=== PATIENT | male | born 1980 | race Caucasian/White ===

== ENCOUNTER 2021-07-15 17:22 | Inpatient (IN) | payer OTHER ==
[2021-07-15 18:09] VITALS: BMI 33.0
[2021-07-15] MEDS ORDERED: ACETAMINOPHEN 1000 MG/100 ML BAG IVPB ONE (19:19)
[2021-07-15] MEDS ORDERED: LACTATED RINGERS SOLUTION 1000 ML INFUS.BAG IV ONE (19:37)
[2021-07-15] MEDS ORDERED: DEXAMETHASONE SOD PHOSPHATE 10 MG/1 ML VIAL IVPUSH ONE (19:37)
[2021-07-15 20:35] LABS: VENOUS BASE EXCESS 0.4 mmol/L (-2-2); VENOUS O2 SATURATION 77.4 % (70-80); VENOUS PH 7.413 (7.310-7.410)
[2021-07-15 20:40] LABS: BASO % 0.3 % (0-2.0); HEMATOCRIT 40.1 % (35.4-49); HEMOGLOBIN 12.9 GM/dL (11.7-16.9); LYMPH % 7.8 % (8-40); MCH 24.9 pg (25.7-33.7); MCHC 32.1 g/dl (32.0-35.9); MEAN CELL VOLUME 77.6 fl (80-96); MEAN PLT VOLUME 9.6 fl (7.5-11.1); MONO % 3.6 % (3.8-10.2); NEUT % 88.3 % (42.8-82.8); PLATELET COUNT 172 10^3/uL (134-434); RBC 5.17 M/mm3 (4.00-5.60); RDW 13.3 % (11.9-15.9); WHITE BLOOD COUNT 4.6 K/mm3 (4.0-10.0)
[2021-07-15] MEDS ORDERED: DEXAMETHASONE SOD PHOSPHATE 10 MG/1 ML VIAL ONE (20:44)
[2021-07-15] MEDS ORDERED: ACETAMINOPHEN INJECTION 100 ML IVPB ONE (20:45)
[2021-07-15 20:47] LABS: INR 1.44 (0.83-1.09); PROTHROMBIN TIME (PATIENT) 16.6 SEC (9.7-13.0)
[2021-07-15 20:55] LABS: CHLORIDE 102 mmol/L (98-107); SODIUM 137 mmol/L (136-145)
[2021-07-15 20:57] LABS: ANION GAP 10 MMOL/L (8-16); BLOOD UREA NITROGEN 13.5 mg/dL (7-18); CALCIUM 8.5 mg/dL (8.5-10.1); CO2 24 mmol/L (21-32); GLUCOSE,RANDOM 104 mg/dL (74-106)
[2021-07-15 21:00] LABS: SGOT/AST 68 U/L (15-37); SGPT/ALT 44 U/L (13-61)
[2021-07-15 21:02] LABS: BILIRUBIN,TOTAL 0.4 mg/dL (0.2-1); TOT PROT 7.2 g/dl (6.4-8.2)
[2021-07-15 21:03] LABS: ALK PHOS 45 U/L (45-117)
[2021-07-15] MEDS ORDERED: AZITHROMYCIN IVPB 500 MG in DEXTROSE 5%-WATER - 250 ML IVPB ONE (23:44)
[2021-07-15] MEDS ORDERED: REMDESIVIR 200 MG in SODIUM CHLORIDE 250 ML IVPB ONE (23:44)
[2021-07-15] MEDS ORDERED: ACETAMINOPHEN 325 MG TABLET (FP) PO PRN (23:48)
[2021-07-16] MEDS ORDERED: CEFTRIAXONE 1 GM/50 ML BAG ONE (00:38)
[2021-07-16] MEDS: CEFTRIAXONE 1 GM in DEXTROSE 5%-WATER - 50 ML IVPB SCH ×2 (01:03→11:10)
[2021-07-16] MEDS ORDERED: AZITHROMYCIN IVPB 500 MG/250 ML BAG IVPB ONE (01:15)
[2021-07-16] MEDS ORDERED: MELATONIN 5 MG TABLETS PO ONE ×2 (03:52→23:45)
[2021-07-16] MEDS ORDERED: REMDESIVIR 200 MG in SODIUM CHLORIDE 250 ML IVPB ONE (05:15)
[2021-07-16 06:53] LABS: EPI CELLS 19 /uL (0-25.1); HYALINE CASTS 10 /uL (0-3.1); PH,URINE 5.5 (5.0-8.0); URINE APPEARANCE CLEAR; URINE BACTERIA 4 /uL (0-1359); URINE BILIRUBIN NEGATIVE (NEGATIVE); URINE COLOR YELLOW; URINE GLUCOSE (UA) NEGATIVE (NEGATIVE); URINE KETONE 3+ (NEGATIVE); URINE LEUK ESTERASE NEGATIVE (NEGATIVE); URINE NITRITE NEGATIVE (NEGATIVE); URINE PROTEIN 1+ (NEGATIVE); URINE RBC 13 /uL (0-23.9); URINE WBC 6 /uL (0-25.8)
[2021-07-16] MEDS ORDERED: DEXAMETHASONE SOD PHOSPHATE 10 MG/1 ML VIAL IM SCH (10:00)
[2021-07-16] MEDS ORDERED: ENOXAPARIN NA (PORCINE) 40 MG/0.4 ML DISP.SYRIN SQ SCH (10:00)
[2021-07-16 10:56] LABS: BASO % 0.3 % (0-2.0); HEMATOCRIT 38.2 % (35.4-49); HEMOGLOBIN 12.5 GM/dL (11.7-16.9); LYMPH % 14.6 % (8-40); MCH 25.3 pg (25.7-33.7); MCHC 32.6 g/dl (32.0-35.9); MEAN CELL VOLUME 77.6 fl (80-96); MEAN PLT VOLUME 9.7 fl (7.5-11.1); MONO % 6.1 % (3.8-10.2); PLATELET COUNT 201 10^3/uL (134-434); RBC 4.93 M/mm3 (4.00-5.60); WHITE BLOOD COUNT 3.2 K/mm3 (4.0-10.0)
[2021-07-16] MEDS ORDERED: DEXTROSE 5%-WATER - 50 ML IVPB ONE (10:57)
[2021-07-16] MEDS ORDERED: cefTRIAXone SODIUM 1 GM VIAL ONE (10:57)
[2021-07-16] MEDS: ASCORBIC ACID 500 MG TABLET (FP) PO SCH ×2 (11:10→21:47)
[2021-07-16] MEDS: ZINC SULFATE 220 MG CAPSULE (FP) PO SCH (11:10)
[2021-07-16] MEDS: PANTOPRAZOLE 40 MG TABLET PO SCH (11:12)
[2021-07-16 11:17] LABS: ALBUMIN 2.7 g/dl (3.4-5.0); BLOOD UREA NITROGEN 14.9 mg/dL (7-18); CALCIUM 8.1 mg/dL (8.5-10.1)
[2021-07-16 11:20] LABS: CREATININE 0.8 mg/dL (0.55-1.3)
[2021-07-16 11:22] LABS: BILIRUBIN,TOTAL 0.5 mg/dL (0.2-1); TOT PROT 6.7 g/dl (6.4-8.2)
[2021-07-16] MEDS: DEXAMETHASONE SOD PHOSPHATE 4 MG/1 ML VIAL IVPUSH SCH (11:31)
[2021-07-16] MEDS: ALBUTEROL SO4 HFA INHALER IH SCH ×3 (15:59→21:47)
[2021-07-16] MEDS: CHOLECALCIFEROL (VIT D3) 5000 UNITS (125 MCG) CAP PO SCH (16:14)
[2021-07-16] MEDS: BUDESONIDE/FORMETEROL FUMARATE 160/4.5 mcg INHALER IH SCH ×2 (17:49→21:47)
[2021-07-16] MEDS: AZITHROMYCIN IVPB 250 MG in DEXTROSE 5%-WATER - 250 ML IVPB SCH (17:49)
[2021-07-16] MEDS: APIXABAN 5 MG TABLET PO SCH (21:47)
[2021-07-17] MEDS: ALBUTEROL SO4 HFA INHALER IH SCH ×4 (06:44→21:34)
[2021-07-17 08:29] LABS: BASO % 0.1 % (0-2.0); HEMATOCRIT 35.7 % (35.4-49); LYMPH % 8.3 % (8-40); MCH 26.1 pg (25.7-33.7); MCHC 33.5 g/dl (32.0-35.9); MEAN CELL VOLUME 77.9 fl (80-96); MEAN PLT VOLUME 9.1 fl (7.5-11.1); MONO % 8.9 % (3.8-10.2); NEUT % 82.7 % (42.8-82.8); PLATELET COUNT 244 10^3/uL (134-434); RBC 4.58 M/mm3 (4.00-5.60); RDW 13.2 % (11.9-15.9); WHITE BLOOD COUNT 6.6 K/mm3 (4.0-10.0)
[2021-07-17 08:50] LABS: ALBUMIN 2.6 g/dl (3.4-5.0); CALCIUM 8.2 mg/dL (8.5-10.1)
[2021-07-17 08:51] LABS: BLOOD UREA NITROGEN 16.1 mg/dL (7-18)
[2021-07-17 08:54] LABS: CREATININE 0.9 mg/dL (0.55-1.3)
[2021-07-17 08:55] LABS: BILIRUBIN,TOTAL 0.4 mg/dL (0.2-1); TOT PROT 6.4 g/dl (6.4-8.2)
[2021-07-17] MEDS ORDERED: cefTRIAXone SODIUM 1 GM VIAL ONE (09:08)
[2021-07-17] MEDS ORDERED: DEXTROSE 5%-WATER - 50 ML IVPB ONE (09:08)
[2021-07-17] MEDS: BUDESONIDE/FORMETEROL FUMARATE 160/4.5 mcg INHALER IH SCH ×2 (10:04→21:48)
[2021-07-17] MEDS: CEFTRIAXONE 1 GM in DEXTROSE 5%-WATER - 50 ML IVPB SCH (10:04)
[2021-07-17] MEDS: AZITHROMYCIN IVPB 250 MG in DEXTROSE 5%-WATER - 250 ML IVPB SCH (10:04)
[2021-07-17] MEDS: PANTOPRAZOLE 40 MG TABLET PO SCH (10:05)
[2021-07-17] MEDS: ZINC SULFATE 220 MG CAPSULE (FP) PO SCH (10:05)
[2021-07-17] MEDS: APIXABAN 5 MG TABLET PO SCH ×2 (10:05→21:34)
[2021-07-17] MEDS: ASCORBIC ACID 500 MG TABLET (FP) PO SCH ×2 (10:05→21:34)
[2021-07-17] MEDS: CHOLECALCIFEROL (VIT D3) 5000 UNITS (125 MCG) CAP PO SCH (10:05)
[2021-07-17] MEDS: DEXAMETHASONE SOD PHOSPHATE 4 MG/1 ML VIAL IVPUSH SCH (10:06)
[2021-07-17] MEDS ORDERED: DEXAMETHASONE SOD PHOSPHATE 10 MG/1 ML VIAL IVPB ONE (11:30)
[2021-07-18] MEDS: ALBUTEROL SO4 HFA INHALER IH SCH ×4 (06:56→22:41)
[2021-07-18] MEDS ORDERED: DEXTROSE 5%-WATER - 50 ML IVPB ONE (09:41)
[2021-07-18] MEDS ORDERED: cefTRIAXone SODIUM 1 GM VIAL ONE (09:41)
[2021-07-18 10:05] LABS: BASO % 0.2 % (0-2.0); HEMATOCRIT 40.6 % (35.4-49); HEMOGLOBIN 13.1 GM/dL (11.7-16.9); LYMPH % 9.9 % (8-40); MCH 25.3 pg (25.7-33.7); MCHC 32.3 g/dl (32.0-35.9); MEAN CELL VOLUME 78.3 fl (80-96); MEAN PLT VOLUME 9.1 fl (7.5-11.1); MONO % 9.7 % (3.8-10.2); NEUT % 80.2 % (42.8-82.8); PLATELET COUNT 347 10^3/uL (134-434); RBC 5.18 M/mm3 (4.00-5.60); RDW 13.7 % (11.9-15.9); WHITE BLOOD COUNT 7.1 K/mm3 (4.0-10.0)
[2021-07-18] MEDS: PANTOPRAZOLE 40 MG TABLET PO SCH (10:06)
[2021-07-18] MEDS: ASCORBIC ACID 500 MG TABLET (FP) PO SCH ×2 (10:06→22:41)
[2021-07-18] MEDS: CEFTRIAXONE 1 GM in DEXTROSE 5%-WATER - 50 ML IVPB SCH (10:06)
[2021-07-18] MEDS: ZINC SULFATE 220 MG CAPSULE (FP) PO SCH (10:06)
[2021-07-18] MEDS: APIXABAN 5 MG TABLET PO SCH ×2 (10:06→22:40)
[2021-07-18] MEDS: DEXAMETHASONE SOD PHOSPHATE 4 MG/1 ML VIAL IVPUSH SCH (10:06)
[2021-07-18] MEDS: BUDESONIDE/FORMETEROL FUMARATE 160/4.5 mcg INHALER IH SCH ×2 (10:07→22:41)
[2021-07-18] MEDS: CHOLECALCIFEROL (VIT D3) 5000 UNITS (125 MCG) CAP PO SCH (10:07)
[2021-07-18 10:31] LABS: CALCIUM 8.6 mg/dL (8.5-10.1)
[2021-07-18 10:32] LABS: ALBUMIN 2.9 g/dl (3.4-5.0); BLOOD UREA NITROGEN 20.1 mg/dL (7-18)
[2021-07-18 10:35] LABS: CREATININE 0.8 mg/dL (0.55-1.3)
[2021-07-18 10:36] LABS: BILIRUBIN,TOTAL 0.5 mg/dL (0.2-1); TOT PROT 7.1 g/dl (6.4-8.2)
[2021-07-18] MEDS: AZITHROMYCIN IVPB 250 MG in DEXTROSE 5%-WATER - 250 ML IVPB SCH (11:15)
[2021-07-19] MEDS: ALBUTEROL SO4 HFA INHALER IH SCH ×4 (06:38→21:05)
[2021-07-19] MEDS ORDERED: DEXTROSE 5%-WATER - 50 ML IVPB ONE (09:13)
[2021-07-19] MEDS ORDERED: cefTRIAXone SODIUM 1 GM VIAL ONE (09:13)
[2021-07-19] MEDS: CEFTRIAXONE 1 GM in DEXTROSE 5%-WATER - 50 ML IVPB SCH (09:47)
[2021-07-19] MEDS: DEXAMETHASONE SOD PHOSPHATE 4 MG/1 ML VIAL IVPUSH SCH (09:48)
[2021-07-19] MEDS: ZINC SULFATE 220 MG CAPSULE (FP) PO SCH (09:48)
[2021-07-19] MEDS: PANTOPRAZOLE 40 MG TABLET PO SCH (09:48)
[2021-07-19] MEDS: APIXABAN 5 MG TABLET PO SCH ×2 (09:48→21:04)
[2021-07-19] MEDS: AZITHROMYCIN IVPB 250 MG in DEXTROSE 5%-WATER - 250 ML IVPB SCH (09:48)
[2021-07-19] MEDS: ASCORBIC ACID 500 MG TABLET (FP) PO SCH ×2 (09:48→21:04)
[2021-07-19] MEDS: BUDESONIDE/FORMETEROL FUMARATE 160/4.5 mcg INHALER IH SCH ×2 (09:49→21:03)
[2021-07-19] MEDS: CHOLECALCIFEROL (VIT D3) 5000 UNITS (125 MCG) CAP PO SCH (09:49)
[2021-07-19 10:07] LABS: BASO % 0.2 % (0-2.0); HEMATOCRIT 37.7 % (35.4-49); MCH 25.2 pg (25.7-33.7); MCHC 31.9 g/dl (32.0-35.9); MONO % 9.5 % (3.8-10.2); NEUT % 76.3 % (42.8-82.8); PLATELET COUNT 318 10^3/uL (134-434); RBC 4.78 M/mm3 (4.00-5.60); RDW 13.4 % (11.9-15.9); WHITE BLOOD COUNT 6.7 K/mm3 (4.0-10.0)
[2021-07-19 10:47] LABS: CALCIUM 8.3 mg/dL (8.5-10.1)
[2021-07-19 10:48] LABS: ALBUMIN 2.6 g/dl (3.4-5.0); BLOOD UREA NITROGEN 20.8 mg/dL (7-18); MAGNESIUM 2.7 mg/dL (1.8-2.4)
[2021-07-19 10:51] LABS: CREATININE 0.8 mg/dL (0.55-1.3); PHOSPHOROUS 3.5 mg/dL (2.5-4.9)
[2021-07-19 10:52] LABS: BILIRUBIN,TOTAL 0.2 mg/dL (0.2-1); TOT PROT 6.3 g/dl (6.4-8.2)
[2021-07-20] MEDS: ALBUTEROL SO4 HFA INHALER IH SCH ×4 (05:35→21:51)
[2021-07-20 07:42] LABS: HEMATOCRIT 39.4 % (35.4-49); HEMOGLOBIN 12.5 GM/dL (11.7-16.9); MCH 25.2 pg (25.7-33.7); MCHC 31.9 g/dl (32.0-35.9); MEAN CELL VOLUME 79.1 fl (80-96); MEAN PLT VOLUME 8.4 fl (7.5-11.1); PLATELET COUNT 324 10^3/uL (134-434); RBC 4.98 M/mm3 (4.00-5.60); RDW 13.2 % (11.9-15.9); WHITE BLOOD COUNT 5.1 K/mm3 (4.0-10.0)
[2021-07-20 08:09] LABS: ALBUMIN 2.6 g/dl (3.4-5.0); BLOOD UREA NITROGEN 17.8 mg/dL (7-18); CALCIUM 8.3 mg/dL (8.5-10.1)
[2021-07-20 08:12] LABS: CREATININE 0.8 mg/dL (0.55-1.3)
[2021-07-20 08:13] LABS: BILIRUBIN,TOTAL 0.8 mg/dL (0.2-1)
[2021-07-20 08:14] LABS: TOT PROT 6.2 g/dl (6.4-8.2)
[2021-07-20] MEDS ORDERED: DEXTROSE 5%-WATER - 50 ML IVPB ONE (09:44)
[2021-07-20] MEDS ORDERED: cefTRIAXone SODIUM 1 GM VIAL ONE (09:44)
[2021-07-20] MEDS: DEXAMETHASONE SOD PHOSPHATE 4 MG/1 ML VIAL IVPUSH SCH (10:11)
[2021-07-20] MEDS: PANTOPRAZOLE 40 MG TABLET PO SCH (10:11)
[2021-07-20] MEDS: CEFTRIAXONE 1 GM in DEXTROSE 5%-WATER - 50 ML IVPB SCH (10:11)
[2021-07-20] MEDS: CHOLECALCIFEROL (VIT D3) 5000 UNITS (125 MCG) CAP PO SCH (10:11)
[2021-07-20] MEDS: APIXABAN 5 MG TABLET PO SCH ×3 (10:11→23:09)
[2021-07-20] MEDS: BUDESONIDE/FORMETEROL FUMARATE 160/4.5 mcg INHALER IH SCH ×2 (10:11→21:51)
[2021-07-20] MEDS: ASCORBIC ACID 500 MG TABLET (FP) PO SCH ×2 (10:11→21:51)
[2021-07-20] MEDS: ZINC SULFATE 220 MG CAPSULE (FP) PO SCH (10:11)
[2021-07-20] MEDS: AZITHROMYCIN IVPB 250 MG in DEXTROSE 5%-WATER - 250 ML IVPB SCH (10:11)
[2021-07-20 10:15] LABS: ANISOCYTOSIS 1+; MACROCYTOSIS 0; PLATELET ESTIMATE NORMAL
[2021-07-21] MEDS: ALBUTEROL SO4 HFA INHALER IH SCH ×4 (05:47→21:29)
[2021-07-21] MEDS ORDERED: DEXTROSE 5%-WATER - 50 ML IVPB ONE (08:28)
[2021-07-21] MEDS ORDERED: cefTRIAXone SODIUM 1 GM VIAL ONE (08:28)
[2021-07-21] MEDS: CEFTRIAXONE 1 GM in DEXTROSE 5%-WATER - 50 ML IVPB SCH (10:22)
[2021-07-21] MEDS: AZITHROMYCIN IVPB 250 MG in DEXTROSE 5%-WATER - 250 ML IVPB SCH (10:22)
[2021-07-21] MEDS: ASCORBIC ACID 500 MG TABLET (FP) PO SCH ×2 (10:23→21:29)
[2021-07-21] MEDS: ZINC SULFATE 220 MG CAPSULE (FP) PO SCH (10:23)
[2021-07-21] MEDS: PANTOPRAZOLE 40 MG TABLET PO SCH (10:23)
[2021-07-21] MEDS: APIXABAN 5 MG TABLET PO SCH ×3 (10:23→21:29)
[2021-07-21] MEDS: CHOLECALCIFEROL (VIT D3) 5000 UNITS (125 MCG) CAP PO SCH (10:24)
[2021-07-21] MEDS: BUDESONIDE/FORMETEROL FUMARATE 160/4.5 mcg INHALER IH SCH ×2 (10:26→21:29)
[2021-07-21] MEDS: DEXAMETHASONE SOD PHOSPHATE 4 MG/1 ML VIAL IVPUSH SCH (10:26)
[2021-07-22] MEDS: ALBUTEROL SO4 HFA INHALER IH SCH ×4 (05:42→21:20)
[2021-07-22 06:47] LABS: HEMATOCRIT 40.6 % (35.4-49); HEMOGLOBIN 12.7 GM/dL (11.7-16.9); MCH 24.9 pg (25.7-33.7); MCHC 31.3 g/dl (32.0-35.9); MEAN CELL VOLUME 79.4 fl (80-96); MEAN PLT VOLUME 8.2 fl (7.5-11.1); PLATELET COUNT 414 10^3/uL (134-434); RBC 5.11 M/mm3 (4.00-5.60); RDW 13.3 % (11.9-15.9); WHITE BLOOD COUNT 8.2 K/mm3 (4.0-10.0)
[2021-07-22 07:22] LABS: ALBUMIN 2.9 g/dl (3.4-5.0); CALCIUM 8.9 mg/dL (8.5-10.1)
[2021-07-22 07:24] LABS: BLOOD UREA NITROGEN 19.7 mg/dL (7-18)
[2021-07-22 07:26] LABS: CREATININE 0.9 mg/dL (0.55-1.3)
[2021-07-22 07:28] LABS: BILIRUBIN,TOTAL 0.3 mg/dL (0.2-1); TOT PROT 6.8 g/dl (6.4-8.2)
[2021-07-22 09:01] LABS: ANISOCYTOSIS 0; HELMET CELLS 0; HOWELL-JOLLY BODIES 0; MACROCYTOSIS 0; OVALOCYTE 0; PLATELET ESTIMATE NORMAL; ROULEAU 0; SICKELED CELLS 0; TARGET CELLS 0; TEAR DROP CELLS 0; TOXIC GRANULATION 0
[2021-07-22] MEDS: PANTOPRAZOLE 40 MG TABLET PO SCH (10:16)
[2021-07-22] MEDS: APIXABAN 5 MG TABLET PO SCH ×2 (10:16→21:20)
[2021-07-22] MEDS: BUDESONIDE/FORMETEROL FUMARATE 160/4.5 mcg INHALER IH SCH ×2 (10:17→21:20)
[2021-07-22] MEDS: CHOLECALCIFEROL (VIT D3) 5000 UNITS (125 MCG) CAP PO SCH (10:17)
[2021-07-22] MEDS: ASCORBIC ACID 500 MG TABLET (FP) PO SCH ×2 (10:17→21:20)
[2021-07-22] MEDS: ZINC SULFATE 220 MG CAPSULE (FP) PO SCH (10:17)
[2021-07-22] MEDS: DEXAMETHASONE SOD PHOSPHATE 4 MG/1 ML VIAL IVPUSH SCH (10:17)
[2021-07-23] MEDS: ALBUTEROL SO4 HFA INHALER IH SCH ×4 (06:09→21:38)
[2021-07-23] MEDS ORDERED: ACETAMINOPHEN 325 MG TABLET (FP) PO PRN (07:49)
[2021-07-23] MEDS: DEXAMETHASONE SOD PHOSPHATE 4 MG/1 ML VIAL IVPUSH SCH (09:40)
[2021-07-23] MEDS: PANTOPRAZOLE 40 MG TABLET PO SCH (09:42)
[2021-07-23] MEDS: BUDESONIDE/FORMETEROL FUMARATE 160/4.5 mcg INHALER IH SCH ×2 (09:42→21:38)
[2021-07-23] MEDS: ZINC SULFATE 220 MG CAPSULE (FP) PO SCH (09:42)
[2021-07-23] MEDS: APIXABAN 5 MG TABLET PO SCH ×2 (09:42→21:38)
[2021-07-23] MEDS: CHOLECALCIFEROL (VIT D3) 5000 UNITS (125 MCG) CAP PO SCH (09:42)
[2021-07-23] MEDS: ASCORBIC ACID 500 MG TABLET (FP) PO SCH ×2 (09:42→21:37)
[2021-07-24] MEDS: ALBUTEROL SO4 HFA INHALER IH SCH ×4 (06:11→21:14)
[2021-07-24 09:13] LABS: HEMATOCRIT 39.2 % (35.4-49); HEMOGLOBIN 12.6 GM/dL (11.7-16.9); MCH 25.3 pg (25.7-33.7); MCHC 32.1 g/dl (32.0-35.9); MEAN CELL VOLUME 78.7 fl (80-96); MEAN PLT VOLUME 8.2 fl (7.5-11.1); PLATELET COUNT 371 10^3/uL (134-434); RBC 4.98 M/mm3 (4.00-5.60); WHITE BLOOD COUNT 7.9 K/mm3 (4.0-10.0)
[2021-07-24 09:53] LABS: BLOOD UREA NITROGEN 23.5 mg/dL (7-18); CALCIUM 8.6 mg/dL (8.5-10.1)
[2021-07-24 09:56] LABS: CREATININE 0.8 mg/dL (0.55-1.3)
[2021-07-24 09:58] LABS: BILIRUBIN,TOTAL 0.4 mg/dL (0.2-1); TOT PROT 6.6 g/dl (6.4-8.2)
[2021-07-24] MEDS: APIXABAN 5 MG TABLET PO SCH ×2 (11:02→21:14)
[2021-07-24] MEDS: BUDESONIDE/FORMETEROL FUMARATE 160/4.5 mcg INHALER IH SCH ×2 (11:02→21:14)
[2021-07-24] MEDS: ZINC SULFATE 220 MG CAPSULE (FP) PO SCH (11:02)
[2021-07-24] MEDS: PANTOPRAZOLE 40 MG TABLET PO SCH (11:02)
[2021-07-24] MEDS: ASCORBIC ACID 500 MG TABLET (FP) PO SCH ×2 (11:03→21:14)
[2021-07-24] MEDS: CHOLECALCIFEROL (VIT D3) 5000 UNITS (125 MCG) CAP PO SCH (11:05)
[2021-07-24 11:36] LABS: ANISOCYTOSIS 0; HELMET CELLS 0; HOWELL-JOLLY BODIES 0; MACROCYTOSIS 0; OVALOCYTE 0; PLATELET ESTIMATE NORMAL; ROULEAU 0; SICKELED CELLS 0; TARGET CELLS 0; TEAR DROP CELLS 0; TOXIC GRANULATION 0
[2021-07-24] MEDS: DEXAMETHASONE SOD PHOSPHATE 4 MG/1 ML VIAL IVPUSH SCH (12:04)
[2021-07-25] MEDS: ALBUTEROL SO4 HFA INHALER IH SCH ×4 (05:57→21:30)
[2021-07-25] MEDS: PANTOPRAZOLE 40 MG TABLET PO SCH (10:18)
[2021-07-25] MEDS: APIXABAN 5 MG TABLET PO SCH ×2 (10:19→21:30)
[2021-07-25] MEDS: ASCORBIC ACID 500 MG TABLET (FP) PO SCH ×2 (10:19→21:30)
[2021-07-25] MEDS: ZINC SULFATE 220 MG CAPSULE (FP) PO SCH (10:19)
[2021-07-25] MEDS: DEXAMETHASONE SOD PHOSPHATE 10 MG/1 ML VIAL IM SCH (10:19)
[2021-07-25] MEDS: BUDESONIDE/FORMETEROL FUMARATE 160/4.5 mcg INHALER IH SCH ×2 (10:22→21:30)
[2021-07-25] MEDS: CHOLECALCIFEROL (VIT D3) 5000 UNITS (125 MCG) CAP PO SCH (13:31)
[2021-07-26] MEDS: ALBUTEROL SO4 HFA INHALER IH SCH ×3 (05:55→17:54)
[2021-07-26 09:54] LABS: HEMATOCRIT 39.8 % (35.4-49); HEMOGLOBIN 12.6 GM/dL (11.7-16.9); MCH 25.2 pg (25.7-33.7); MCHC 31.7 g/dl (32.0-35.9); MEAN CELL VOLUME 79.4 fl (80-96); MEAN PLT VOLUME 8.1 fl (7.5-11.1); PLATELET COUNT 307 10^3/uL (134-434); RBC 5.01 M/mm3 (4.00-5.60); RDW 13.3 % (11.9-15.9); WHITE BLOOD COUNT 8.7 K/mm3 (4.0-10.0)
[2021-07-26 10:25] LABS: BLOOD UREA NITROGEN 22.4 mg/dL (7-18)
[2021-07-26 10:26] LABS: CALCIUM 9.1 mg/dL (8.5-10.1)
[2021-07-26 10:29] LABS: CREATININE 0.9 mg/dL (0.55-1.3)
[2021-07-26] MEDS: DEXAMETHASONE SOD PHOSPHATE 10 MG/1 ML VIAL IM SCH (10:29)
[2021-07-26 10:30] LABS: BILIRUBIN,TOTAL 0.6 mg/dL (0.2-1); TOT PROT 6.4 g/dl (6.4-8.2)
[2021-07-26] MEDS: ASCORBIC ACID 500 MG TABLET (FP) PO SCH (10:30)
[2021-07-26] MEDS: APIXABAN 5 MG TABLET PO SCH (10:30)
[2021-07-26] MEDS: ZINC SULFATE 220 MG CAPSULE (FP) PO SCH (10:30)
[2021-07-26] MEDS: CHOLECALCIFEROL (VIT D3) 5000 UNITS (125 MCG) CAP PO SCH (10:30)
[2021-07-26] MEDS: BUDESONIDE/FORMETEROL FUMARATE 160/4.5 mcg INHALER IH SCH (10:30)
[2021-07-26] MEDS: PANTOPRAZOLE 40 MG TABLET PO SCH (10:30)
[2021-07-26 10:36] LABS: ANISOCYTOSIS 2+; MACROCYTOSIS 0; PLATELET ESTIMATE NORMAL
[2021-07-26 18:10] VITALS: BP 119/68; PULSE 79; TEMP 98.1
== END 2021-07-26 19:27 | disposition home or self-care (01) | DRG 137 ==
LOC: JER 17:22 → JERBED 21:07 → J8W 07-16 02:54 → J4S 07-17 00:30
PROVIDERS: ADMIT Internal Medicine; ATTEND Internal Medicine
PROC: XW033E5 Introduction of Remdesivir Anti-infective into Peripheral Vein, Percutaneous Approach, New Technology Group 5 (ICD-10-PCS; principal; 2021-07-16)
DX: U07.1 COVID-19 (principal); J12.82 Pneumonia due to coronavirus disease 2019; J96.01 Acute respiratory failure with hypoxia; E78.5 Hyperlipidemia, unspecified; R79.89 Other specified abnormal findings of blood chemistry; R63.4 Abnormal weight loss; Z68.33 Body mass index [BMI] 33.0-33.9, adult
CPT/HCPCS: 36415; 71045-TC-FY; 76705-TC; 80053; 81003; 82728; 82803; 83605; 83735; 84100; 84484; 85025; 85379; 85610; 85730; 86140; 86480; 86803; 87040; 87086; 87340; 87517; 87804; 93005; 93010; 94761; 99285-25; C9399; C9803; J0131; J1100; U0003; U0005

== ENCOUNTER 2022-03-29 17:38 | Emergency (ER) | payer OTHER ==
[2022-03-29 17:57] VITALS: BP 129/84; PULSE 80; RESP 18; TEMP 100.2; BMI 30.8
[2022-03-29] MEDS ORDERED: DEXAMETHASONE SOD PHOSPHATE 10 MG/1 ML VIAL IVPUSH ONE (18:50)
[2022-03-29] MEDS ORDERED: SODIUM CHLORIDE 0.9% 1000 ML INFUS.BAG IV ONE (18:51)
[2022-03-29] MEDS ORDERED: ACETAMINOPHEN 1000 MG/100 ML BAG IVPB ONE (18:52)
[2022-03-29 19:24] LABS: BASO % 0.4 % (0-2.0); EOS % 0.4 % (0-4.5); HEMATOCRIT 44.8 % (35.4-49); HEMOGLOBIN 14.8 GM/dL (11.7-16.9); LYMPH % 26.9 % (8-40); MCH 25.7 pg (25.7-33.7); MEAN PLT VOLUME 8.3 fl (7.5-11.1); MONO % 7.4 % (3.8-10.2); NEUT % 64.9 % (42.8-82.8); PLATELET COUNT 239 10^3/uL (134-434); RBC 5.74 M/mm3 (4.00-5.60); RDW 13.7 % (11.9-15.9); WHITE BLOOD COUNT 9.9 K/mm3 (4.0-10.0)
[2022-03-29 19:32] LABS: INR 1.1 (0.83-1.09); PROTHROMBIN TIME (PATIENT) 12.7 SEC (9.7-13.0)
[2022-03-29 19:34] LABS: ACTIVATED PTT 39.2 SECONDS (25.2-36.5)
[2022-03-29 19:46] LABS: BLOOD UREA NITROGEN 13.1 mg/dL (7-18); CALCIUM 9.6 mg/dL (8.5-10.1)
[2022-03-29 19:51] LABS: BILIRUBIN,TOTAL 0.4 mg/dL (0.2-1); TOT PROT 8.5 g/dl (6.4-8.2)
[2022-03-29] MEDS ORDERED: DEXAMETHASONE SOD PHOSPHATE 10 MG/1 ML VIAL ONE (20:37)
[2022-03-29] MEDS ORDERED: ACETAMINOPHEN INJECTION 100 ML IVPB ONE (20:37)
[2022-03-29] MEDS ORDERED: MAG HYDROX/AL HYDROX/SIMETH 30 ML UNIT-DOSE CUP PO ONE (21:14)
[2022-03-29] MEDS ORDERED: MAG HYDROX/AL HYDROX/SIMETH 30 ML UNIT-DOSE CUP ONE (21:30)
[2022-03-29] MEDS ORDERED: CEPHALEXIN MONOHYDRATE 500 MG CAPSULE (UD) PO ONE (21:42)
[2022-03-29] MEDS ORDERED: CEPHALEXIN MONOHYDRATE 500 MG CAPSULE (UD) ONE (21:49)
== END 2022-03-29 22:19 | disposition home or self-care (01) ==
LOC: JER 17:38
PROC: 3E0333Z Introduction of Anti-inflammatory into Peripheral Vein, Percutaneous Approach (ICD-10-PCS; principal; 2022-03-29)
PROC: 3E0333Z Introduction of Anti-inflammatory into Peripheral Vein, Percutaneous Approach (ICD-10-PCS; 2022-03-29)
DX: R59.9 Enlarged lymph nodes, unspecified (principal); R09.89 Other specified symptoms and signs involving the circulatory and respiratory systems
CPT/HCPCS: 36415; 70360-TC-FY; 70490-TC; 71046-TC-FY; 80053; 85025; 85610; 85730; 86850; 86900; 86901; 93005; 93010; 99285-25; C9803-CS; J1100; U0003; U0005